=== PATIENT | male | born 1985 | race Caucasian/White ===

== ENCOUNTER 2017-12-04 06:11 | Day surgery (SDC) | payer BC ==
--- NOTE | 2017-11-22 09:07 | HP ---
DATE OF ADMISSION: 12/04/2017 DATE OF DICTATION: 11/14/2017 Patient to be admitted through the [facility] [place] for management of his hernia. HISTORY: This is a 32-year-old man with a rather longstanding history of a left inguinal hernia. Presents now for definitive management of what is a left inguinal scrotal hernia. Patient has been reducing the hernia on his own for quite some time now. 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 No underlying GI, , or respiratory complaints to suggest predisposition to hernia formation. PAST MEDICAL HISTORY: Essentially nil. No history of hypertension, heart disease, diabetes, respiratory, renal, or hepatic insufficiency. PAST SURGICAL HISTORY: Nil. ALLERGIES: None known. REGULAR MEDICATIONS: None. SOCIAL HISTORY: Negative tobacco. Positive alcohol/social and infrequent, maybe up to once weekly. FAMILY HISTORY: Nil. REVIEW OF SYSTEMS: Nil. PHYSICAL EXAMINATION: Abdomen/Genitalia: In the erect position, the patient has an obvious, rather large left inguinal scrotal hernia. In the supine position, hernia is reducible. The right groin is intact with no issues. Testes are unremarkable. IMPRESSION: Left inguinal scrotal hernia. PLAN: Open repair of left inguinal scrotal hernia with mesh. Indications, alternatives, possible complications reviewed. Consent obtained. Patient to be seen preoperatively by Dr. Lynn Garvey. Please refer to her notes for those medical details. BRENTON PINZON M.D. [id number] cc: Lynn Garvey MD MTDManjinder
[2017-12-03 16:34] VITALS: BMI 29.9
[2017-12-04] MEDS ORDERED: MIDAZOLAM HCL 2 MG/2 ML SINGLE DOSE VIAL ONE (07:49)
[2017-12-04] MEDS ORDERED: PROPOFOL 20 ML ONE ×2 (08:01→08:15)
[2017-12-04] MEDS ORDERED: ROCURONIUM BROMIDE 50 MG/5 ML VIAL ONE ×2 (08:01→08:32)
[2017-12-04] MEDS ORDERED: ceFAZolin SODIUM 1 GM VIAL IVPB ONE (08:08)
[2017-12-04] MEDS ORDERED: BUPIVACAINE HCL/PF 0.5% (5MG/ML) 10 ML VIAL ONE (09:01)
[2017-12-04] MEDS ORDERED: LIDOCAINE HCL/PF 2% SDV 5ML VIAL ONE (09:40)
[2017-12-04] MEDS ORDERED: ceFAZolin SODIUM 1 GM VIAL ONE (09:40)
[2017-12-04] MEDS ORDERED: DEXAMETHASONE SOD PHOSPHATE 4 MG/1 ML VIAL ONE (09:40)
[2017-12-04] MEDS ORDERED: LIDOCAINE HCL 2% JELLY (5 ML/TUBE) ONE (09:40)
[2017-12-04] MEDS ORDERED: ONDANSETRON 4 MG/2 ML VIAL ONE (09:40)
[2017-12-04] MEDS ORDERED: KETOROLAC TROMETHAMINE 30 MG/1 ML VIAL ONE (09:41)
[2017-12-04] MEDS ORDERED: NEOSTIGMINE METHYLSULFATE 0.5 MG/ML - 10 ML MDV ONE (09:47)
[2017-12-04] MEDS ORDERED: GLYCOPYRROLATE 0.2 MG/1 ML VIAL ONE (09:47)
[2017-12-04] MEDS ORDERED: PROMETHAZINE HCL 25 MG/1 ML VIAL IVPUSH PRN (10:11)
[2017-12-04] MEDS ORDERED: ONDANSETRON 4 MG/2 ML VIAL IVPUSH PRN (10:11)
[2017-12-04] MEDS ORDERED: oxyCODONE HCL 5 MG TABLET PO PRN (10:11)
[2017-12-04] MEDS ORDERED: LACTATED RINGERS SOLUTION 1,000 ML IV SCH (10:15)
--- NOTE | 2017-12-04 11:24 | OP ---
DATE OF OPERATION: 12/04/2017 PREOPERATIVE DIAGNOSIS: Incarcerated left inguinal scrotal hernia. POSTOPERATIVE DIAGNOSIS: Incarcerated left inguinal scrotal hernia. PROCEDURE: Open reduction and repair of chronically incarcerated left inguinal scrotal hernia with mesh/intermediate wound closure (8 cm). OPERATING SURGEON: Juan Lua MD QUALITY AND RELIABILITY ENGINEER: Hamlet Shaikh DO ANESTHESIA: General. ANESTHESIOLOGIST: Wendy Ernandez MD HISTORY: This is a 32-year-old male with a longstanding left inguinal hernia seen in the office approximately a month ago. With manipulation, it was reducible. However, here in the operating room at the onset of the procedure, the entire contents of the left inguinal scrotal hernia could not be reduced. Indications, alternatives, and possible complications of the procedure were reviewed. Consent obtained. DESCRIPTION OF PROCEDURE: With the patient in the supine position, and after general anesthesia, the left groin scrotal region was prepped and draped in sterile fashion using chlorhexidine. An 8-cm left groin incision was made between the left pubic tubercle and left anterior iliac spine. The incision was deepened into the subcutaneous space. All identified vessels in the subcutaneous space were clamped, divided, and ligated. The external oblique aponeurosis was then opened in the direction of its fibers through the external ring. The ilioinguinal nerve was identified and spared. The sac and contents were swept clean approaching the pubic tubercle. The scrotal portion of the hernia was delivered up into the open wound. The large indirect sac was then freed from its attachment to the cord structures , exercising care not to injure the vas or its vascular component. The sac was mobilized to the level of the preperitoneal fat and inferior epigastric vessels. The sac was opened and a portion of omentum was easily reduced. The sac was transfixed at its base with 2-0 silk suture material x2. The sac was amputated and sent as specimen labeled left inguinal hernia sac. An adjacent cord lipoma was identified and excised, as well. Now directing our attention to the inguinal floor, there was significant attenuation of most of the transversalis fascia. The transversalis fascia was split throughout its entire length. The preperitoneal tissues were reduced. Davol plug was placed in the preperitoneal space and out onto the musculature. It was tacked in place circumferentially using interrupted 2-0 Prolene sutures. The attenuated transversalis fascia was then imbricated in 2 layers over the Davol plug and then leaving the Davol plug entirely in the preperitoneal space. This was accomplished with a continuous 2-0 Prolene suture beginning at the pubic tubercle, approaching internal ring to permit only fingertip entrance and returning to the pubic tubercle. An intermittently overlying mesh was fashioned about the inguinal floor. It was tacked in place circumferentially. It was keyholed superiorly, where it was wrapped around the cord at the internal ring, buttressing the internal ring itself. After adequate hemostasis, the cord and ilioinguinal nerve were then returned to their anatomic positions. The overlying external oblique aponeurosis was closed using a continuous 3-0 Vicryl suture. The wound was irrigated. Hemostasis was ensured. Scarpas fascia was approximated with interrupted 3-0 Vicryl sutures. The subcuticular layer was approximated using interrupted 4-0 Biosyn suture. Skin was approximated with 4-0 Biosyn in a subcuticular stitch in a continuous fashion. Prior to complete closure, 10 mL of 0.5% Marcaine was freely instilled in the wound. NEEDLE AND INSTRUMENT COUNT: Correct. ESTIMATED BLOOD LOSS: Minimal. SPECIMENS: Hernia sac, cord lipoma. DRAINS: None. Patient tolerated the procedure, and the procedure was terminated. July [id number] cc: Lynn Garvey MD MTDD
[2017-12-04 12:35] VITALS: TEMP 98.3
[2017-12-04] MEDS ORDERED: oxyCODONE HCL 5 MG TABLET ONE (12:36)
[2017-12-04 13:51] VITALS: BP 120/77; PULSE 80
--- NOTE | 2017-12-05 14:29 | PATH ---
Surgical Pathology Report Patient Name: VICENTE DAMICO [facility]. Rec. #: [id number] /Age/Gender: 1985 (Age: 32) / M Account: [id number] Location: [facility] Taken: 12/04/2017 Received: 12/04/2017 Reported: 12/05/2017 Physicians: Juan Lua M.D. Specimen(s) Received A: CORD LIPOMA B: HERNIA SAC Clinical History Left inguinal hernia Final Diagnosis A. CORD LIPOMA, EXCISION: FIBROADIPOSE TO FIBROVASCULAR TISSUE CONSISTENT WITH CORD LIPOMA. B. HERNIA SAC, LEFT, INGUINAL HERNIA REPAIR: MESOTHELIAL LINED FIBROMEMBRANOUS TISSUE CONSISTENT WITH HERNIA SAC. Electronically Signed Larisa Espinoza M.D. Gross Description A. Received in formalin labeled "cord lipoma," is a 5.3 x 2.2 x 0.7 cm farmer-pink portion of fibromembranous tissue. Sectioning reveals yellow, lobulated adipose tissue. Chief Security And Safety Officer sections are submitted in one cassette. B. Received in formalin labeled "hernia sac," is a 6.5 x 3.2 x 1.0 cm portion of pink-farmer, saccular fibromembranous tissue. Chief Security And Safety Officer sections are submitted in one cassette. /12/04/201712/04/2017
== END 2017-12-04 13:25 | disposition home or self-care (01) ==
LOC: JASU-SURG 06:11
PROVIDERS: ATTEND Surgery
PROC: 0YU60JZ Supplement Left Inguinal Region with Synthetic Substitute, Open Approach (ICD-10-PCS; principal; 2017-12-04 08:00)
DX: K40.30 Unilateral inguinal hernia, with obstruction, without gangrene, not specified as recurrent (principal)
CPT/HCPCS: 88302-TC; 88304-TC